=== PATIENT | male | born 1970 | race Two or more races ===

== ENCOUNTER → 2017-03-10 | Outpatient (CLI) | payer OTHER ==
--- NOTE | 2017-03-29 00:51 | ECWPNPC ---
PATIENT NAME: TITI KEATING : 1970 GENDER: MALE VISIT DATE: 03/10/2017 DISCHARGE DATE: 03/10/17 1356 VISIT LOCKED DATE TIME: PHYSICIAN: NELDA HERNADEZ RESOURCE: NELDA HERNADEZ REASON FOR APPOINTMENT 1. CERVICAL HISTORY OF PRESENT ILLNESS FALL RISK SCREENIN46 Y/O MALE REFERRED BY PRIMARY CARE MR. BRICEÑO AT [facility] FOR EVALUATION OF CHRONIC LOW BACK PAIN AND NECK PAIN THAT PATIENT STATES IS RELATED TO DEGENERATIVE DISC DISEASE.THIS BEGAN MANY YEARS AGO AND AFTER HE INJURED LEFT HIP FOUR YEARS AGO PAIN BEGAN TO BE MORE INTENSE AND BEGAN RADIATING INTO LEGS.FOLLOWS WITH DR. VERAS.RATING PAIN VAS 9/10.APPEARS EXTEMELY UNCOMFORTABLE.PAIN IS AGGREVTED BY PROLONGED SITTING.PATIENT IS IN BED MOST OF THE TIME.DENIES BOWEL OR BLADDER INCONTINENCE.NO RECENT FEVER,ILLNESS OR WEIGHT LOSS.HAS TRIALED SEVERAL MEDICATIONS WITH EITHER SIDE EFFECTS OR NO IMPROVEMENT IN PAIN. SCREENING :NO FALLS IN THE PAST YEAR PAIN SCREENING: PATIENT HAS A COMPLAINT OF ACUTE OR CHRONIC PAIN :YES CURRENT MEDICATIONS NONE PAST MEDICAL HISTORY BACK AND NECK PAIN ALLERGIES RICE: SEPTICEMIA: ALLERGY SURGICAL HISTORY TESTICULAR MASS REMOVED-BENIGN FAMILY HISTORY FATHER: ALIVE 72 YRS, DIAGNOSED WITH DIABETES, HEART DISEASE MOTHER: ALIVE 72 YRS, DIAGNOSED WITH HEART DISEASE, CANCER SOCIAL HISTORY GENERAL: TOBACCO USE ARE YOU A:NONSMOKER LUNG CANCER SCREENING SMOKING STATUS:NON SMOKER ALCOHOL SCREENING POINTS1 INTERPRETATIONNEGATIVE MORAVIAN [id number] ATHEIST LANGUAGE LANGUAGES SPOKEN:MALTESE EDUCATION LEVEL OF EDUCATION:HIGH SCHOOL ADVANCE DIRECTIVES HEALTH CARE PROXY?NO WOULD YOU LIKE MORE INFORMATION?NO DO YOU HAVE A DNR?NO WOULD YOU LIKE MORE INFORMATION?NO LIVING WILL?NO WOULD YOU LIKE MORE INFORMATION?NO POWER OF DBA MANAGER?NO HOSPITALIZATION/MAJOR DIAGNOSTIC PROCEDURE SEPTICEMIA REVIEW OF SYSTEMS CONSTITUTIONAL: ANY CHANGE IN YOUR MEDICAL CONDITION? YES, NECK PAIN 4/10, LBP 3/10, R KNEE PAIN 3/10 . CHILLS NO . FEVER NO . INFECTION: DO YOU HAVE NEW INFECTIONS? NO . DO YOU HAVE HISTORY OF MRSA? NO . MUSCULOSKELETAL: ANY NEW PATTERNS OF PAIN OR NUMBNESS? YES, PATTERNS OF PAIN STAY THE SAME, JUST INCREASE IN INTENSITY. . SYTEMIC LUPUS NO . GASTROENTEROLOGY: ANY NEW CHANGE IN BOWEL CONTROL? NO . BARRETTS ESOPHAGUS NO . CIRRHOSIS NO . HEPATITIS NO . LIVER FAILURE NO . ACID REFLUX NO . UNEXPLAINED WEIGHT LOSS NO . GENITOURINARY: ANY NEW CHANGE IN BLADDER CONTROL? NO . IS THERE A CHANCE YOU COULD BE ? NO . HEMATOLOGY/LYMPH: DO YOU TAKE ANY BLOOD THINNERS? (FOR EXAMPLE- COUMADIN, PLAVIX, AGGRENOX, PLATEL, PRADAXA, OR XARELTO) NO . WHEN WAS YOUR LAST DOSE? DATE: TIME: . LOW PLATELET COUNT NO . SICKLE CELL DISEASE NO . VON WILLIEBRANDS NO . FACTOR V LEIDEN NO . THALLASEMIA NO . ANEMIA NO . EASY BRUISING NO . NEUROLOGY: HAVE YOU FALLEN IN THE PAST 6 MONTHS? NO . ANY NEW EXTREMITY NUMBNESS OR WEAKNESS? NO . HEAD INJURY NO . DEMENTIA NO . CEREBRAL PALSY NO . MULTIPLE SCLEROSIS NO . DIZZINESS NO . HEADACHE NO . STROKES NO . VERTIGO NO . CARDIOLOGY: DO YOU HAVE A PACEMAKER OR DEFIBRILLATOR? NO . ANGINA NO . HEART ATTACK NO . HEART SURGERY NO . CONGESTIVE HEART FAILURE/FLUID OVERLOAD NO . CHEST PAIN NO . HIGH BLOOD PRESSURE NO . IRREGULAR HEART BEAT NO . RESPIRATORY: HAVE YOU BEEN SICK IN THE PAST WEEK? NO . FEVER NO . FLU LIKE SYMPTOMS? NO . CPAP NO . BYPAP NO . ASTHMA NO . EMPHYSEMA NO . CHRONIC LUNG DISEASES NO . SHORTNESS OF BREATH ON EXERTION NO . COUGH NO . SNORING NO . INTEGUMENTARY: DO YOU HAVE ANY RASHES OR OPEN SORES? NO . ALLERGIC/IMMUNO: ARE YOU ALLERGIC TO SHELLFISH OR IV DYE? NO . ANY NEW ALLERGIES? NO . PSYCHIATRIC: DO YOU HAVE THOUGHTS OF HURTING YOURSELF OR SOMEONE ELSE? NO . ARE YOU ABUSED, NEGLECTED, OR IN AN UNSAFE ENVIRONMENT? NO . ENDOCRINOLOGY: ARE YOU DIABETIC? NO . THYROID DISORDER NO . OTHER: DO YOU NEED ANY PRESCRIPTIONS? NO . IF YES, PLEASE LIST: ____ . ANY NEW PROBLEMS WITH YOUR MEDICATIONS? NO . WHEN DID YOU LAST EAT? ____ . WHEN DID YOU LAST DRINK? ____ . WHAT DID YOU LAST DRINK? ____ . NAME OF PERSON DRIVING YOU HOME? ____ . DO YOU HAVE ANY OTHER QUESTIONS OR CONCERNS NO . REVIEWED BY: PROVIDER: NELDA WILSON . VITAL SIGNS WT 208.6 LBS, HT 78.5 ", BMI 23.80 INDEX, BP 133/77 MM HG, HR 66 /MIN, RR 16 /MIN, TEMP 97.0 F, OXYGEN SAT % 96%, SAFE IN ENV? (Y/N) Y, NA INITIALS TL 1143, REVIEWED BY: EM. EXAMINATION GENERAL EXAMINATION: GENERAL APPEARANCE:NO ACUTE DISTRESS. PSYCHAFFECT NORMAL. HEENT:NORMOCEPHALIC. NECK:NO LYMPHADENOPATHY. LUNGS:LUNG [place] ARE CLEAR TO AUSCULTATION BILATERALLY. GOOD MOVEMENT OF AIR. HEART:S1, S2 IN A REGULAR RATE AND RHYTHM. NO SIGNIFICANT MURMURS, RUBS OR GALLOPS NOTED. BACK:NO TENDERNESS NOTED., NORMAL RANGE OF MOTION OF SPINE.MST UPPER AND LOWER EXTREMIIES 5/5.NORMAL SENSATION TO LIGHT TOUCH UPPER AND LOWER EXTREMITIES.. ABDOMEN:SOFT, NON-TENDER, NO ORGANOMEGALY, BOWEL SOUNDS ARE NORMAL. ASSESSMENTS CERVICALGIA - M54.2 (PRIMARY) MYALGIA - M79.1 LUMBAGO OF LUMBOSACARAL REGION WITH SCIATICA - M54.40 TREATMENT CERVICALGIA NOTES: REOMMEND CONTINUED EVALUATION AT [facility] FOR CONSIDERATION OF CYMBALTA TRIAL AND/OR TPI RIGHT NECK AND ONGOING CARE OF CHRONIC PAIN. PROCEDURE CODES [id number] ESTABILISHED PATIENT [facility] FACILITY CHARGE DISPOSITION & COMMUNICATION FOLLOW UP NO F/U NECESSARY ELECTRONICALLY SIGNED BY STEVE BLANCO ON 03/28/2017 AT 05:16 PM EDT DISCLAIMER : THIS IS A VISIT SUMMARY EXTRACTED FROM THE [employer] CHART. IT IS NOT A COPY OF THE [employer] PROGRESS NOTE. MTDD
== END ==
LOC: M PAIN 11:20
PROVIDERS: ATTEND Nurse Practitioner Family
DX: G89.29 Other chronic pain (principal); M54.2 Cervicalgia; M79.1 Myalgia; M54.40 Lumbago with sciatica, unspecified side; Z91.018 Allergy to other foods